=== PATIENT | female | born 1955 | race Caucasian/White ===

== ENCOUNTER 2019-09-12 08:24 | Day surgery (SDC) | payer OTHER ==
[2019-09-09 11:33] LABS: Urine Appearance CLEAR; Urine Bilirubin NEGATIVE (NEG); Urine Blood TRACE (NEG); Urine Color YELLOW; Urine Glucose NEGATIVE (NEG); Urine Protein NEGATIVE (NEG); Urine pH 7.5 (5.0-7.0)
[2019-09-09 11:39] LABS: Protime INR 0.93
[2019-09-09 11:40] LABS: Absolute Lymphocytes (CBC) 1.6 K/uL (0.7-4.9); Basophils % 0.8 % (0-1.3); Hematocrit 41.5 % (36.0-45.0); Lymphocytes % 27.3 % (15.3-44.8); MPV 7.7 fL (7.6-11.3); RBC Red Blood Cell Count 4.73 M/uL (3.86-4.86)
[2019-09-09 11:45] LABS: Urine Microscopic Reflex ORDER UMIC
[2019-09-09 11:57] LABS: Urine Bacteria NONE SEEN /HPF (<20); Urine Culture Reflex Order NOT NEEDED; Urine RBC <5 /HPF (NONE SEEN)
[2019-09-09 12:03] LABS: Potassium 3.8 mmol/L (3.5-5.1)
[2019-09-12] MEDS ORDERED: LIDOCAINE 2% MPF 5 ML VIAL ONE (08:50)
[2019-09-12] MEDS ORDERED: FENTANYL CITR 250 MCG/5 ML ONE (08:50)
[2019-09-12] MEDS ORDERED: dexAMETHasone 10 MG/ML VIAL ONE (08:50)
[2019-09-12] MEDS ORDERED: ONDANSETRON 4 MG/2 ML VIAL ONE (08:50)
[2019-09-12] MEDS ORDERED: propofoL 200 MG/20 ML VIAL IV ONE (08:50)
[2019-09-12] MEDS ORDERED: MIDAZOLAM HCL 2 MG/2 ML INJ ONE (08:50)
[2019-09-12] MEDS ORDERED: ROCURONIUM 50 MG/5 ML VIAL IV ONE (08:50)
[2019-09-12] MEDS ORDERED: Ringers Lactate 1,000 ML IV ONE ×2 (08:58→09:44)
[2019-09-12] MEDS ORDERED: SCOPOLAMINE HYDROBROMIDE PATCH TD ONE (08:58)
[2019-09-12] MEDS: CEFAZOLIN/SWI 2gm 2 GM/20 ML SYR ONE ×3 (09:24→10:20)
[2019-09-12] MEDS ORDERED: BUPIVACAINE 0.25% PF 30 ML VIAL ONE (09:44)
[2019-09-12] MEDS ORDERED: CEFAZOLIN/SWI 1gm 0 GM/0 ML SYR ONE (09:49)
[2019-09-12] MEDS ORDERED: NA CHLORIDE 0.9% 100 ML IV ONE (09:49)
[2019-09-12] MEDS ORDERED: VASOPRESSIN 20 UNIT/ML VIAL ONE (09:49)
--- OUTSIDE RECORDS SUMMARY | 2019-09-12 10:00 | XMS REPORT | Continuity of Care Document ---
:1955 Author Organization [employer] [facility] Care Team Providers Name Role Phone [employer] Unavailable Un available Problems Problem Status Onset Classification Date Comments Sourc e Date Reported Primary Active 04/05/19 04/22/2019 [facility] hypothyroidism 17 Healt h Multiple thyroid Active 04/05/19 04/22/2019 [facility] nodules 17 Health Personal history Active 04/06/19 11/07/2018 [facility] of other diseases 11 He alth of digestive system Personal history Active 04/06/19 04/22/2019 [facility] of other diseases 11 He alth of digestive system Osteoporosis, Active 12/17/19 04/22/2019 [facility] senile 09 Health GERD Active 12/17/19 04/22/2019 [facility] (gastroesophageal 09 He alth reflux disease) Hyperlipidemia Active Problem 07/26/2019 [facility] her (disorder) Neuro Hypothyroidism Active Problem 07/26/2019 [facility] (disorder) Neuro Paresthesia Active Problem 07/26/2019 [facility] (finding) Neuro 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) Cataract Active 04/22/2019 [facility] Health Plantar fasciitis, Active 04/18/2019 [facility] bilateral Health Bilateral foot Active 04/18/2019 [facility] pain Health Cataract, nuclear Active 11/07/2018 [facility] sclerotic senile, He alth left Pre-op testing Active 11/06/2018 [facility] Health Medications Medication Details Route Status Patient Ordering Order Source Instructions Provider Date gabapentin 300 MG 300 mg = 1 Active 07/04/ Mis isabel Oral Capsule cap, PO, 2019 Neuro BID, # 180 cap, 3 Refill(s), Pharmacy: [facility] #[id number] gabapentin 300 MG 300 mg = 1 Active 06/12/ Mis isabel Oral Capsule cap, PO, 2019 Neuro BID, # 60 cap, 3 Refill(s), Pharmacy: [facility] #[id number] levothyroxine 88 88 Active 06/12/ [facility]ischer mcg (0.088 mg) microgram 2019 Neuro oral tablet = 1 tab, PO, Daily, 0 Refill(s) pravastatin 40 mg 40 mg = 1 Active c her oral tablet tab, PO, 2019 Neuro Daily, 0 Refill(s) FLUoxetine 40 mg 40 mg = 1 Active ch er oral capsule cap, PO, 2019 Neuro Daily, 0 Refill(s) busPIRone 7.5 mg 7.5 mg = 1 Active c her oral tablet tab, PO, 2019 Neuro BID, 0 Refill(s) zolpidem 10 mg 10 mg = 1 Active 06/12/ [facility] oral tablet tab, PO, 2019 Neuro Bedtime, 0 Refill(s) Lorazepam 1 MG 1 mg = 1 Active 06/12/ cher Oral Tablet tab, PO, 2019 Neuro TID, 0 Refill(s) gabapentin 100 MG 100 mg = 1 Inactive paula Oral Capsule cap, PO, 2019 Neuro BID, 0 Refill(s) denosumab Subcutaneous Inactive [facility] (PROLIA) 2019 Health injection Syrg 60 mg levothyroxine Take 1 Oral Active 01/23/ [facility] (SYNTHROID) 88 tablet by 2019 Health mcg tablet mouth every morning. modafinil 100 mg Take 100 Oral No Longer [facility] tablet mg by Active 2019 Health mouth as needed. GINKGO BILOBA Take 1 Oral No Longer 11/07/ [facility] ORAL tablet by Active 2019 Health mouth daily. diphenhydramine Take 1 Oral No Longer 11/07/ [facility] HCl (SLEEP-AID tablet by Active 2019 Health ORAL) mouth at bedtime as needed. vilazodone Take 1 Oral No Longer 11/06/ [facility] (VIIBRYD) 10 mg tablet by Active 2019 Health Tab mouth daily. levothyroxine Take 1 Oral Active 11/05/ [facility] (SYNTHROID) 88 tablet by 2019 Health mcg tablet mouth every morning. VIIBRYD 40 mg Take 40 mg Oral Active 10/28/ [facility] tablet by mouth 2019 Health daily. levothyroxine Take 1 Oral No Longer 04/03/ [facility] (SYNTHROID) 88 tablet by Active 2019 Health mcg tablet mouth every morning. pravastatin Take 40 mg Oral Active [facility] (PRAVACHOL) 40 mg by mouth Healt h tablet at bedtime. cholecalciferol, Take 1 Oral Active [facility] vitamin D3, tablet by [employer] 50,000 unit mouth tablet every 14 (fourteen) days. ezetimibe 10 mg Take 10 mg Oral Active [facility] tablet by mouth Health daily. vilazodone Take 1 Oral Active [facility] (VIIBRYD) 10 mg tablet by Health Tab mouth daily. modafinil 100 mg Take 100 Oral Active [facility] tablet mg by Health mouth as needed. GINKGO BILOBA Take 1 Oral Active [facility] ORAL tablet by Health mouth daily. diphenhydramine Take 1 Oral Active [facility] HCl (SLEEP-AID tablet by Health ORAL) mouth at bedtime as needed. Allergies, Adverse Reactions, Alerts No Known Medication Allergies Immunizations No Data Provided for This Section Results Order Name Results Value Reference Date Interpretation Comments Emelina rce Range COMP. NA 142 135 - 145 11/06 [facility] METABOLIC Health PANEL (35299) COMP. K 4.6 3.5 - 5 11/06 [facility] METABOLIC Health PANEL (97025) COMP. CL 101 98 - 108 11/06 [facility] Health PANEL (91800) COMP. CO2 TOTAL 29 23 - 31 11/06 [facility] Health PANEL (30959) COMP. AGAP 12 2 - 16 11/06 [facility] Health PANEL (75785) COMP. BUN 16 7 - 23 11/06 [facility] Health PANEL (60674) COMP. GLUCOSE 105 70 - 110 11/06 [facility] METABOLIC Health PANEL (92231) COMP. CREATININE 0.89 0.5 - 1.04 11/06 [facility] METABOLIC Health PANEL (39303) COMP. TOTAL BILI 0.5 0.1 - 1.1 11/06 [facility] Health PANEL (95889) COMP. CALCIUM 10.2 8.6 - 10.6 11/06 [facility] Health PANEL (58964) COMP. T PROTEIN 7.9 6.3 - 8.2 11/06 [facility] METABOLIC Health PANEL (80095) COMP. ALBUMIN 5.0 3.5 - 5 11/06 [facility] Health PANEL (87409) COMP. ALK PHOS 48 34 - 122 11/06 [facility] METABOLIC Health PANEL (64995) COMP. ALT(SGPT) 38 9 - 51 11/06 [facility] METABOLIC Health PANEL (33641) COMP. AST(SGOT) 27 13 - 40 11/06 [facility] METABOLIC /2018 Health PANEL (19431) COMP. eGFR 64.1 mL/min/1.7 11/06 [facility] METABOLIC Calculation 3m Health PANEL (57974) (Non-) COMP. eGFR 77.6 mL/min/1.7 11/06 [facility] METABOLIC Calculation Health PANEL (49627) () COMP. <p>Association Association 11/06 [facility] METABOLIC of Glomerular of Health PANEL (49573) Filtration Glomerular Rate (GFR) and Filtration Staging of Rate (GFR) Kidney and Staging Disease*</p of Kidney ><p>+--------- Disease*+--- + --------+--- --------+----- ------+----- ------+</p><p> | GFR --------+| (mL/min/1.73 GFR m2)| With (mL/min/1.73 Kidney m2)| With Damage|Without Kidney Kidney Damage|Witho Damage< md Kidney /p><p>+------- Damage+----- --+ ------+----- +--- ----+------- --------+</p>< p>|>90|Stage ------+|>90| one| Stage one| Normal</p><p&a Normal+----- mp;gt;+------- ------+----- --+ +--- ----+------- --------+</p>& ------+|60-8 lt;p>|60-89|St 9|Stage two| age two| Decreased Decreased GFR GFR </p><p>+------ + ---+ + +-- +- ---------+</p> <p>|30-59|Stag +|30-59|Stag e three| Stage e three| three Stage three </p><p>+------ + ---+ + +-- +- ---------+</p> <p>|15-29|Stag +|15-29|Stag e four | Stage e four | four</p&gt Stage ;<p>+--------- four+------- + ----+------- --------+----- --+--------- ------+</p> <p>|<15 (or ----+|+----- dialysis)|Stag e five | Stage ------+----- five</p><p> + ----+------- +--- ------+*Each ----+--------- stage assumes the --+</p><p>* associated Each stage GFR level assumes the has been in associated GFR effect for level has been at least in effect for three at least three months.Stage months.Stages s 1 to 5, 1 to 5, with with or or without without kidney kidney disease, disease, indicate indicate chronic kidney chronic disease.</p&am kidney p;gt;<p>Notes: disease.Note Determination s: of stages one Determinatio and two (with n of stages eGFR one and two >59mL/min/1.73 (with eGFR m2) requires >59mL/min/1. estimation of 73 m2) kidney damage requires for at least estimation three months of kidney as defined by damage for structural or at least functional three months abnormalities as defined of the kidney, by manifested by structural either:</p><p> or Pathological functional abnormalities abnormalitie or Markers of s of the kidney damage kidney, (including manifested abnormalities by in the either:Patho composition of logical the blood or abnormalitie urine or s or Markers abnormalities of kidney in imaging damage tests). </p> (including abnormalitie s in the composition of the blood or urine or abnormalitie s in imaging tests). CBC WITH <td 7.88 4.30 - 11/06 [facility] DIFFERENTIAL ID="[id number] [facility] 24025Mjyt4Huim ">WBC</td><td& amp;gt;7.88</t d><td>4.30 - 11.10 10*3/L</td>&l t;td>[facility]</td ><td ID="[id number] 08872Pidj2Izph ature"/> CBC WITH <td 4.32 3.93 - 11/06 [facility] DIFFERENTIAL ID="[id number] 5 [facility] 62405Imhx9Xvjv ">RBC</td><td& amp;gt;4.32</t d><td>3.93 - 5.25 10*6/L</td><t d>[facility]</td ><td ID="[id number] 82459Drym4Yqvm ature"/> CBC WITH <td 12.9 11.6 - 15 11/06 [facility] DIFFERENTIAL ID="[id number] /2019 [facility] 51136Htni7Rwtm ">HGB</td><td& amp;gt;12.9</t d><td>11.6 - 15.0 g/dL</td><td>[facility]</td ><td ID="[id number] 42481Vfwe8Lhaw ature"/> CBC WITH <td 38.1 35.7 - 11/06 [facility] DIFFERENTIAL ID="Itnvjd7411 45.2 [facility] 56774Amgq9Rcts ">HCT</td><td& amp;gt;38.1</t d><td>35.7 - 45.2 %</td><td>[facility]</td ><td ID="[id number] 00160Xikq0Wbaw ature"/> CBC WITH <td 88.2 80.6 - 11/06 [facility] DIFFERENTIAL ID="Dbstxw2503 95.5 [facility] 49476Kmde7Nizu ">MCV</td><td& amp;gt;88.2</t d><td>80.6 - 95.5 fL</td><td>[facility]</td ><td ID="[id number] 03556Cadc5Wdhl ature"/> CBC WITH <td 29.9 25.9 - 11/06 [facility] DIFFERENTIAL ID="Pfxlfd6410 32.8 [facility] 75485Fiyv0Wxdj ">MCH</td><td& amp;gt;29.9</t d><td>25.9 - 32.8 pg</td><td>[facility]</td ><td ID="Tdsrqj4956 62627Yfxh6Tlpj ature"/> CBC WITH <td 33.9 31.6 - 11/06 [facility] DIFFERENTIAL ID="Oiuecm8316 35.1 [facility] 92196Lewk7Ougf ">MCHC</td><td >33.9</ td><td>31.6 - 35.1 g/dL</td><td>[facility]</td ><td ID="[id number] 93762Yeel4Gapo ature"/> CBC WITH <td 41.9 39 - 49.9 11/06 [facility] DIFFERENTIAL ID="[id number] /2019 [facility] 05741Fsta8Bsro ">RDW-SD</td>< td>41.9</td><t d>39.0 - 49.9 fL</td><td>[facility]</td ><td ID="[id number] 62795Pzuu1Dpmd ature"/> CBC WITH <td 12.9 12 - 15.5 11/06 [facility] DIFFERENTIAL ID="[id number] /2019 [facility] 31266Smdk5Pcih ">RDW-CV</td>< td>12.9</td><t d>12.0 - 15.5 %</td><td>[facility]</td ><td ID="[id number] 17628Rqgq4Cvhc ature"/> CBC WITH <td 219 166 - 11/06 [facility] DIFFERENTIAL ID="[id number] [facility] 72530Exwq64Btb e">PLT</td><td >219</t d><td>166 - 358 10*3/L</td><t d>[facility]</td ><td ID="[id number] 53398Fwlw56Wpc nature"/> CBC WITH <td 9.2 9.5 - 12.9 11/06 [facility] DIFFERENTIAL ID="[id number] /2019 [facility] 47243Ukzj91Col e">MPV</td><td ><span style="flagDat a">9.2</span>< span style="flagDat a"> (L)</span></td ><td>9.5 - 12.9 fL</td><td>[facility]</td ><td ID="Dxrxop7433 47267Exqp38Bsc nature"/> CBC WITH NRBC/100 WBC 0.0 0.0 - 11/06 [facility] DIFFERENTIAL 10.0100 Health CBC WITH NRBC x10^3 <0.01 10*3/L 11/06 [facility] DIFFERENTIAL Health CBC WITH <td 64.2 11/06 [facility] DIFFERENTIAL ID="Mvwugo1225 /2019 [facility] 64466Zzwq72Mon e">GRAN MAT (NEUT) %</td><td>6 4.2</td><td>%< /td><td>[facility]</td ><td ID="Doaezu4046 44484Jpbe97Uld nature"/> CBC WITH IMM GRAN % 0.40 11/06 [facility] DIFFERENTIAL /2018 Health CBC WITH <td 25.1 11/06 [facility] DIFFERENTIAL ID="Jarfce4193 /2019 [facility] 89003Drar66Dvz e">LYMPH %</td><td>25.1 </td><td>%</td ><td>[facility]</td ><td ID="Jthkrw3701 00286Dvkb29Wxu nature&quo t;/> CBC WITH <td 7.6 11/06 [facility] DIFFERENTIAL ID="Ryzwcl9013 /2019 [facility] 63204Avdk10Qli e">MONO %</td><td>7.6< /td><td>%</td> <td>[facility]</td ><td ID="Ttaljz5083 75903Qfyo67Orv nature"/> CBC WITH <td 2.2 11/06 [facility] DIFFERENTIAL ID="Ytrlpw1008 /2019 [facility] 64301Oaev71Uor e">EOS %</td><td>2.2< /td><td>%</td> <td>[facility]</td ><td ID="Gynvrk7883 60281Denj50Wid nature"/> CBC WITH <td 0.5 11/06 [facility] DIFFERENTIAL ID="[id number] /2019 [facility] 24432Ghmp96Max e">BASO %</td><td>0.5< /td><td>%</td> <td>[facility]</td ><td ID="[id number] 76971Pczv26Rmr nature"/> CBC WITH GRAN MAT 5.06 1.88 - 11/06 [facility] DIFFERENTIAL x10^3(ANC) 7.09 Health CBC WITH IMM GRAN x10^3 0.03 0 - 0.06 11/06 [facility] DIFFERENTIAL /2018 Health CBC WITH <td 1.98 1.32 - 11/06 [facility] DIFFERENTIAL ID="Pomchn8511 3. [facility] 97849Mfkl62Pnn e">LYMPH x10^3</td>&amp ;lt;td>1.98</t d><td>1.32 - 3.29 10*3/uL</td><t d>[facility]</td ><td ID="[id number] 83196Rksl41Eew nature"/> CBC WITH <td 0.60 0.33 - 11/06 [facility] DIFFERENTIAL ID="Vbzwpj5573 0.92 [facility] 21272Jxud88Vdm e">MONO x10^3</td>< td>0.60</td><t d>0.33 - 0.92 10*3/uL</td><t d>[facility]</td ><td ID="[id number] 57906Xctv53Axd nature"/> CBC WITH <td 0.17 0.03 - 11/06 [facility] DIFFERENTIAL ID="Odyvke2064 0.39 [facility] 47205Dqlm17Yks e">EOS x10^3</td>< td>0.17</td><t d>0.03 - 0.39 10*3/uL</td><t d>[facility]</td ><td ID="Yyhjar0211 99857Yfzz50Bkf nature"/> CBC WITH <td 0.04 0.01 - 11/06 [facility] DIFFERENTIAL ID="Pqrtuj4724 0.07 [facility] 24564Virp70Rxk e">BASO x10^3</td>< td>0.04</td><t d>0.01 - 0.07 10*3/uL</td><t d>[facility]</td ><td ID="[id number] 61055Lhdb63Gpt nature"/> CBC WITH Lab Abnormal 11/06 [facility] DIFFERENTIAL Interpretation /2018 [facility] Pathology Reports No Data Provided for This Section Diagnostic Reports No Data Provided for This Section Consultation Notes No Data Provided for This Section Discharge Summaries No Data Provided for This Section History and Physicals No Data Provided for This Section Vital Signs Vital Sign Value Date Comments Source Systolic (mm Hg) 116 07/23/2019 [facility] Rakesh ro Diastolic (mm Hg) 66 07/23/2019 [facility] Ne uro Heart Rate 70 07/23/2019 [facility] Neuro Respitory Rate 16 07/23/2019 [facility] Neuro Temperature Oral (F) 97.9 F 07/23/2019 [facility] Neuro Height 160.02 cm 07/23/2019 [facility] Neuro Weight 59.091 07/23/2019 [facility] Neuro BMI Calculated 23.08 07/23/2019 [facility] Neuro Systolic (mm Hg) 116 06/13/2019 [facility] Rakesh ro Diastolic (mm Hg) 65 06/13/2019 [facility] Ne uro Heart Rate 78 06/13/2019 [facility] Neuro Respitory Rate 16 06/13/2019 [facility] Neuro Height 162.56 cm 06/13/2019 [facility] Neuro Weight 58.182 06/13/2019 [facility] Neuro BMI Calculated 22.02 06/13/2019 [facility] Neuro Systolic (mm Hg) 127 04/12/2019 [facility] Health Diastolic (mm Hg) 78 04/12/2019 [facility] Healt h Heart Rate 77 04/12/2019 [facility] Health Temperature Oral (F) 36.56 Navya 04/12/2019 [facility] He alth Height 160 cm 04/12/2019 [facility] Health Weight 57.38 04/12/2019 [facility] Health Systolic (mm Hg) 95 11/07/2018 [facility] Health Diastolic (mm Hg) 71 11/07/2018 [facility] Healt h Heart Rate 75 11/07/2018 [facility] Health Temperature Oral (F) 36.67 Navya 11/07/2018 [facility] He alth Respitory Rate 15 11/07/2018 [facility] Health Height 160 cm 11/06/2018 [facility] Health Weight 56.7 11/06/2018 [facility] Health Encounters Location Location Encounter Encounter Reason Attending ADM DC Stat us Source Details Type Number For Provider Date Date Visit [facility] Health Refill [id number] [place] 10/30 [facility] Family Health Medicine, [facility] Orders Only [id number] No Doctor 11/06 [facility] Unassigned Health [facility] Health [employer] [id number] Kee 11/06 11/06 [facility] Phlebotomy Visit Aj TORRES /2018 He alth [facility] [id number] Kee 11/07 11/07 [facility] [place] Encounter Aj TORRES /2018 H ealth [facility] Health Ancillary [id number] Taj 04/02 04/02 [id number] No Doctor 04/04 [facility] Unass Health [facility] Health Ancillary [id number] Taj 04/04 04/04 [id number] Liudmila Starkey 04/09 [facility] MD [facility] [id number] Taj 04/09 04/09 [facility] [id number] Taj 04/11 04/11 [facility] Physical Visit Gage TORRES /2019 [facility] Health Nurse Visit [id number] Liudmila Starkey 04/12 04/12 [facility] Marino TORRES /2019 Health Diabetes-LC Multispecia y [facility] Health Ancillary [id number] Taj 04/16 04/16 [facility] Physical Visit Gage TORRES /2019 [facility] Health Ancillary [id number] Taj 04/18 04/18 [facility] Physical Visit Gage TORRES /2019 [facility] Outpatient [id number] Isael Tamayo 06/12 Act [facility] [id number] Isael Tamayo 06/12 06/13 [facility] Outpatient [id number] Isael Tamayo 07/18 Act jos[facility] Ambulatory [id number] Isael Tamayo 07/18 07/18 [facility] Pre-[facility] Neuro [facility] Outpatient [id number] Isael Tamayo 07/22 Act josé mig[facility] Outpatient [id number] Isael Tamayo 07/22 07/23 [facility] Outpatient [id number] Isael Tamayo 11/25 Act josé [facility] Procedures Procedure Code Date Perfomer Comments Source HOLTER MONITOR [id number] 04/04/2019 Doctor Unassigned [facility] Health RESULT COMP. METABOLIC 81938 11/06/2018 [facility] th PANEL (21188) CBC WITH DIFF 00144 11/06/2018 [facility] CBC WITH [id number] 11/06/2018 [facility] [place] [address] 11/06/2018 Doctor Unassigned [facility] Health BENEFITS Assessment and Plan No Data Provided for This Section Plan of Care Plan of Care Date Source Breast Cancer Screening (MAMMOGRAM) 01/12/2020 [facility] Upcoming EncountersDateTypeSpecialtyCare TeamDescription 05/2019 [facility] 07/24/2019 Office Visit Endocrinology Diabetes and Metabolism Liudmila Starkey MD[address] [place], [place] [phone] (Fax) Health MaintenanceDue DateLast DoneComments HEPATITIS C (HCV) SCREEN 1955 DTaP,Tdap,and Td Vaccines (1 - Tdap) 08/07/1966 PAP SMEAR 08/07/1976 COLONOSCOPY 08/07/2005 Zoster Recombinant Vaccine (SHINGRIX) (1 of 2) 08/07/2005 INFLUENZA VACCINE (#1) 2018 Breast Cancer Screening (MAMMOGRAM) 01/12/2020 01/11/2019, 09/05/2014 PNEUMOCOCCAL 0-64 YEARS COMBINED SERIES Aged Out No longer eligible based on patient's age to complete this t opic documented as of this encounter Upcoming EncountersDateTypeSpecialtyCare TeamDescription [facility] 07/24/2019 Office Visit Endocrinology Diabetes and Metabolism Liudmila Starkey MD[address] [place], [place] [phone] (Fax) Health MaintenanceDue DateLast DoneComments HEPATITIS C (HCV) SCREEN 1955 DTaP,Tdap,and Td Vaccines (1 - Tdap) 08/07/1966 PAP SMEAR 08/07/1976 COLONOSCOPY 08/07/2005 Zoster Recombinant Vaccine (SHINGRIX) (1 of 2) 08/07/2005 INFLUENZA VACCINE (#1) 2018 Breast Cancer Screening (MAMMOGRAM) 01/12/2020 01/11/2019, 09/05/2014 PNEUMOCOCCAL 0-64 YEARS COMBINED SERIES Aged Out No longer eligible based on patient's age to complete this t opic documented as of this encounter Upcoming EncountersDateTypeSpecialtyCare TeamDescription [facility] 04/18/2019 Ancillary Visit Physical Therapy Teto Bowens, [address] [phone] 07/24/2019 Office Visit Endocrinology Diabetes and Metabolism Liudmila Starkey MD[address] [place], [place] [phone] (Fax) [facility] DateLast DoneComments HEPATITIS C (HCV) SCREEN 1955 DTaP,Tdap,and Td Vaccines (1 - Tdap) 08/07/1966 PAP SMEAR 08/07/1976 COLONOSCOPY 08/07/2005 Zoster Recombinant Vaccine (SHINGRIX) (1 of 2) 08/07/2005 INFLUENZA VACCINE (#1) 2018 Breast Cancer Screening (MAMMOGRAM) 01/12/2020 01/11/2019, 09/05/2014 PNEUMOCOCCAL 0-64 YEARS COMBINED SERIES Aged Out No longer eligible based on patient's age to complete this t opic documented as of this encounter Upcoming EncountersDateTypeSpecialtyCare TeamDescription [facility] 04/18/2019 Ancillary Visit Physical Therapy Teto Bowens, [address] [address] 07/24/2019 Office Visit Endocrinology Diabetes and Metabolism Liudmila Starkey MD[address] [place], [place] [phone] (Fax) [facility] DateLast DoneComments HEPATITIS C (HCV) SCREEN 1955 DTaP,Tdap,and Td Vaccines (1 - Tdap) 08/07/1966 PAP SMEAR 08/07/1976 COLONOSCOPY 08/07/2005 Zoster Recombinant Vaccine (SHINGRIX) (1 of 2) 08/07/2005 INFLUENZA VACCINE (#1) 2018 Breast Cancer Screening (MAMMOGRAM) 01/12/2020 01/11/2019, 09/05/2014 PNEUMOCOCCAL 0-64 YEARS COMBINED SERIES Aged Out No longer eligible based on patient's age to complete this t opic documented as of this encounter Upcoming EncountersDateTypeSpecialtyCare TeamDescription [facility] 04/16/2019 Ancillary Visit Physical Therapy Teto Bowens, [address] [address] 04/18/2019 Ancillary Visit Physical Therapy Teto Bowens, [address] [address] 07/24/2019 Office Visit Endocrinology Diabetes and Metabolism Liudmila Starkey MD[address] [place], [place] [phone] (Fax) Health MaintenanceDu DateLast DoneComments HEPATITIS C (HCV) SCREEN 1955 DTaP,Tdap,and Td Vaccines (1 - Tdap) 08/07/1966 PAP SMEAR 08/07/1976 COLONOSCOPY 08/07/2005 Zoster Recombinant Vaccine (SHINGRIX) (1 of 2) 08/07/2005 INFLUENZA VACCINE (#1) 2018 Breast Cancer Screening (MAMMOGRAM) 01/12/2020 01/11/2019, 09/05/2014 PNEUMOCOCCAL 0-64 YEARS COMBINED SERIES Aged Out No longer eligible based on patient's age to [facility] documented [facility] of this encounter Upcoming EncountersDateTypeSpecialtyCare TeamDescription [facility] 04/12/2019 Nurse Visit Endocrinology Diabetes and Metabolism Liudmila Starkey MD[address] [place], [place] [phone] (Fax) Nurse, [facility] Diabetes 04/16/2019 Ancillary Visit Physical Therapy Bree Bowens, [address] [phone] 04/18/2019 Ancillary Visit Physical Therapy Bree Bowens, [address] [address] 07/24/2019 Office Visit Endocrinology Diabetes and Metabolism Liudmila Starkey MD[address] [place], [place] [phone] (Fax) [facility] DateLast DoneComments HEPATITIS C (HCV) SCREEN 1955 DTaP,Tdap,and Td Vaccines (1 - Tdap) 08/07/1966 PAP SMEAR 08/07/1976 COLONOSCOPY 08/07/2005 Zoster Recombinant Vaccine (SHINGRIX) (1 of 2) 08/07/2005 INFLUENZA VACCINE (#1) 2018 Breast Cancer Screening (MAMMOGRAM) 01/12/2020 01/11/2019, 09/05/2014 PNEUMOCOCCAL 0-64 YEARS COMBINED SERIES Aged Out No longer eligible based on patient's age to complete this t opic documented as of this encounter Upcoming EncountersDateTypeSpecialtyCare TeamDescription [facility] 04/11/2019 Ancillary Visit Physical Therapy Bree Bowens, [address] [address] 04/16/2019 Ancillary Visit Physical Therapy Bree Bowens, [address] [address] 04/18/2019 Ancillary Visit Physical Therapy Bree Bowens, [address] [address] 07/24/2019 Office Visit Endocrinology Diabetes and Metabolism Liudmila Starkey MD[address] [place], [place] [phone] (Fax) Health MaintenanceDue DateLast DoneComments HEPATITIS C (HCV) SCREEN 1955 DTaP,Tdap,and Td Vaccines (1 - Tdap) 08/07/1966 PAP SMEAR 08/07/1976 COLONOSCOPY 08/07/2005 Zoster Recombinant Vaccine (SHINGRIX) (1 of 2) 08/07/2005 INFLUENZA VACCINE (#1) 2018 Breast Cancer Screening (MAMMOGRAM) 01/12/2020 01/11/2019, 09/05/2014 PNEUMOCOCCAL 0-64 YEARS COMBINED SERIES Aged Out No longer eligible based on patient's age to complete this t opic documented as of this encounter Upcoming EncountersDateTypeSpecialtyCare TeamDescription [facility] 04/09/2019 Ancillary Visit Physical Therapy Bree Bowens, [address] [address] 04/11/2019 Ancillary Visit Physical Therapy Bree Bowens, [address] [address] 04/16/2019 Ancillary Visit Physical Therapy Bree Bowens, [address] [address] 04/18/2019 Ancillary Visit Physical Therapy Bree Bowens, [address] [address] 07/24/2019 Office Visit Endocrinology Diabetes and Metabolism Liudmila Starkey MD[address] [place], [place] [phone] (Fax) Health MaintenanceDu DateLast DoneComments HEPATITIS C (HCV) SCREEN 1955 DTaP,Tdap,and Td Vaccines (1 - Tdap) 08/07/1966 PAP SMEAR 08/07/1976 COLONOSCOPY 08/07/2005 Zoster Recombinant Vaccine (SHINGRIX) (1 of 2) 08/07/2005 INFLUENZA VACCINE (#1) 2018 Breast Cancer Screening (MAMMOGRAM) 01/12/2020 01/11/2019, 09/05/2014 PNEUMOCOCCAL 0-64 YEARS COMBINED SERIES Aged Out No longer eligible based on patient's age to complete this t opic documented as of this encounter Upcoming EncountersDateTypeSpecialtyCare TeamDescription [facility] 04/04/2019 Ancillary Visit Physical Therapy Cyndi Jean Baptiste, [address] [address] 04/05/2019 Nurse Visit Endocrinology Diabetes and Metabolism Nurse, [facility] 04/09/2019 Ancillary Visit Physical Therapy Bree Bowens, [address] [address] 04/11/2019 Ancillary Visit Physical Therapy Bree Bowens, [address] [address] 04/16/2019 Ancillary Visit Physical Therapy Bree Bowens [address] [address] 04/18/2019 Ancillary Visit Physical Therapy Bree Bowens, [address] [address] 07/24/2019 Office Visit Endocrinology Diabetes and Metabolism Liudmila Starkey MD[address] [place], [place] [phone] (Fax) Health MaintenanceDu DateLast DoneComments HEPATITIS C (HCV) SCREEN 1955 DTaP,Tdap,and Td Vaccines (1 - Tdap) 08/07/1966 PAP SMEAR 08/07/1976 COLONOSCOPY 08/07/2005 Zoster Recombinant Vaccine (SHINGRIX) (1 of 2) 08/07/2005 INFLUENZA VACCINE (#1) 2018 Breast Cancer Screening (MAMMOGRAM) 01/12/2020 01/11/2019, 09/05/2014 PNEUMOCOCCAL 0-64 YEARS COMBINED SERIES Aged Out No longer eligible based on patient's age to complete this t opic documented as of this encounter INFLUENZA VACCINE (#1) 2018 [facility] Upcoming EncountersDateTypeSpecialtyCare TeamDescription [facility] 01/23/2019 Office Visit Endocrinology Diabetes and Metabolism Liudmila Starkey MD[address] [place], [place] [phone] (Fax) Health MaintenanceDue DateLast DoneComments HEPATITIS C (HCV) SCREEN 1955 DTaP,Tdap,and Td Vaccines (1 - Tdap) 08/07/1974 PAP SMEAR 08/07/1976 COLONOSCOPY 08/07/2005 Zoster Recombinant Vaccine (SHINGRIX) (1 of 2) 08/07/2005 MAMMOGRAM 09/06/2015 09/05/2014 INFLUENZA VACCINE (#1) 2018 PNEUMOCOCCAL 0-64 YEARS COMBINED SERIES Aged Out No longer eligible based on patient's age to complete this t opic documented as of this encounter Upcoming EncountersDateTypeSpecialtyCare TeamDescription [facility] 11/07/2018 Hospital Encounter Surgery Kee Rocha MD[address] [place] [phone] (Fax) 11/07/2018 Anesthesia Event Surgery Jimmy Currie CRNA[address] [place], [place] [phone] (Fax) 11/07/2018 Surgery Surgery Kee Rocha MD[address] [place] [phone] (Fax) PHACOEMULSIFICATION OF CATARACT WITH INTRAOCULAR LENS IMPLAN T 01/23/2019 Office Visit Endocrinology Diabetes and Metabolism Liudmila Starkey MD[address] [place], [place] [phone] (Fax) Health MaintenanceDu DateLast DoneComments HEPATITIS C (HCV) SCREEN 1955 DTaP,Tdap,and Td Vaccines (1 - Tdap) 08/07/1974 PAP SMEAR 08/07/1976 COLONOSCOPY 08/07/2005 Zoster Recombinant Vaccine (SHINGRIX) (1 of 2) 08/07/2005 MAMMOGRAM 09/06/2015 09/05/2014 INFLUENZA VACCINE (#1) 2018 PNEUMOCOCCAL 0-64 YEARS COMBINED SERIES Aged Out No longer eligible based on patient's age to complete this t opic documented as of this encounter Upcoming EncountersDateTypeSpecialtyCare TeamDescription [facility] 11/07/2018 Hospital Encounter Surgery Kee Rocha MD[address] [place] [phone] (Fax) 11/07/2018 Anesthesia Event Surgery Jimmy Currie CRNA[address] [place], [place] [phone] (Fax) 11/07/2018 Surgery Surgery Kee Rocha MD[address] [place] [phone] (Fax) PHACOEMULSIFICATION OF CATARACT WITH INTRAOCULAR LENS IMPLAN T 01/23/2019 Office Visit Endocrinology Diabetes and Metabolism Liudmila Starkey MD[address] [place], [place] [phone] (Fax) [facility] MaintenanceDu DateLast DoneComments HEPATITIS C (HCV) SCREEN 1955 DTaP,Tdap,and Td Vaccines (1 - Tdap) 08/07/1974 PAP SMEAR 08/07/1976 COLONOSCOPY 08/07/2005 Zoster Recombinant Vaccine (SHINGRIX) (1 of 2) 08/07/2005 MAMMOGRAM 09/06/2015 09/05/2014 INFLUENZA VACCINE (#1) 2018 PNEUMOCOCCAL 0-64 YEARS COMBINED SERIES Aged Out No longer eligible based on patient's age to complete this t opic documented as of this encounter Upcoming EncountersDateTypeSpecialtyCare TeamDescription [facility] 11/06/2018 [employer] Visit Clinical Medical Laboratory Kee Rocha MD[address] [facility] [phone] (Fax) 1, [facility] 11/07/2018 Hospital Encounter Surgery Kee Rocha MD[address] [facility] [place] [phone] (Fax) 11/07/2018 Surgery Surgery Kee Rocha MD[address] [facility] [place] [phone] (Fax) PHACOEMULSIFICATION OF CATARACT WITH INTRAOCULAR LENS IMPLAN T 01/23/2019 Office Visit Endocrinology Diabetes and Metabolism Liudmila Starkey MD[address] [place], [place] [phone] (Fax) Health MaintenanceDue DateLast DoneComments HEPATITIS C (HCV) SCREEN 1955 DTaP,Tdap,and Td Vaccines (1 - Tdap) 08/07/1974 PAP SMEAR 08/07/1976 COLONOSCOPY 08/07/2005 Zoster Recombinant Vaccine (SHINGRIX) (1 of 2) 08/07/2005 MAMMOGRAM 09/06/2015 09/05/2014 INFLUENZA VACCINE (#1) 2018 PNEUMOCOCCAL 0-64 YEARS COMBINED SERIES Aged Out No longer eligible based on patient's age to complete this t opic documented as of this encounter MAMMOGRAM 09/06/2015 [facility] Zoster Recombinant Vaccine (SHINGRIX) (1 of 2) 08/07/2005 [facility] Health COLONOSCOPY 08/07/2005 [facility] Health PAP SMEAR 08/07/1976 [facility] Health PAP SMEAR 08/07/1976 [facility] Health DTaP,Tdap,and Td Vaccines (1 - Tdap) 08/07/1974 [facility] Health DTaP,Tdap,and Td Vaccines (1 - Tdap) 08/07/1966 [facility] HEPATITIS C (HCV) SCREEN 1955 [facility] HEPATITIS C (HCV) SCREEN 1955 [facility] Social History Social History Date Source Social History TypeResponse 07/23/2019 [facility] Smoking Status Never smoker; Exposure to Tobacco Smoke Unable to obtain; Cigarette Smoking Last 365 Days No; Reg Smoking Cessation Counseling No entered on: 07/23/19 Tobacco UseTypesPacks/DayYears UsedDate 01/23/2019 [facility] Never Smoker Smokeless Tobacco: Never Used Alcohol UseDrinks/Weekoz/WeekComments Yes 2 -4 drinks a week Sex Assigned at BirthDate Recorded Not on file Job Start DateOccupationIndustry Not on file Not on file Not on file Travel HistoryTravel StartTravel End No recent travel history available. documented as of this encounter Family History No Data Provided for This Section Advance Directives No Data Provided for This Section Functional Status No Data Provided for This Section
--- OUTSIDE RECORDS SUMMARY | 2019-09-12 10:02 | XMS REPORT | Continuity of Care Document ---
:1955 Author Organization [facility] t Address [address] [place] [address] Care Team Providers Name Role Phone Lalito TORRES Attending Clinician Savage Tamayo Attending Clinician Kwan BOLANOS, F Attending Clinician Unavailable NurseMarino Diabetes Attending Clinician Unavailable Jennie Bowens PTA Attending Clinician Unavailable Doctor Unassigned, Name Attending Clinician Unavailable Juan David Russell PT Attending Clinician Unavailable Aj TORRES, A Attending Clinician 1, Lab Attending Clinician Unavailable Loreta TORRES, A Attending Clinician Aj TORRES, A Admitting Clinician Problems Condition Condition Condition Status Onset Resolution Last Treating Co mments Source Name Details Category Date Date Treatment Clinician Date Multiple Condition Active 2019-04-22 M emoria thyroid 04-05 14:37:23 l nodules Multiple 00:00: Angeline nn thyroid 00 nodules Active 04/05/2016 04/22/2019 [facility] Health Personal Condition Active 2018-11-07 M emoria history of - 20:21:48 l other Personal 00:00: Parker n diseases history of 00 of other digestive diseases system of digestive system Active 04/06/2010 11/07/2018 [facility] Health Personal Condition Active 2019-04-22 M emoria history of 04-06 14:37:23 l other Personal 00:00: Parker n diseases history of 00 of other digestive diseases system of digestive system Active 04/06/2010 04/22/2019 [facility] Health Osteoporos Condition Active 2019-04-22 Memoria is, senile 12-16 14:37:23 l 00:00: Yovanny Osteoporos 00 is, senile Active 12/16/2008 04/22/2019 [facility] Health GERD Condition Active 2019-04-22 Mem oria (gastroeso 12-16 14:37:23 l phageal GERD 00:00: Yovanny reflux (gastroeso 00 disease) phageal reflux disease) Active 12/16/2008 04/22/2019 [facility] Health Hyperlipid Problem Active 2019-07-26 M emoria emia 00:03:23 l (disorder) [place] hoyos Hyperlipid emia (disorder) Active Problem 07/26/2019 [facility] Hypothyroi Problem Active 2019-07-26 M emoria dism 00:03:23 l (disorder) [place] hoyos Hypothyroi dism (disorder) Active Problem 07/26/2019 [facility] Paresthesi Problem Active 2019-07-26 M emoria a 00:03:23 l (finding) [place] Paresthesi a (finding) Active Problem 07/26/2019 [facility] 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) Active Problem 07/26/2019 [facility] Cataract Condition Active 2019-04-22 M emoria 14:37:23 l Cataract Parker n Active 04/22/2019 [facility] Plantar Diagnosis Active 2019-04-18 Me moria fasciitis, 16:31:20 l bilateral Plantar Herm tj fasciitis, bilateral Active 0 [facility] Bilateral Diagnosis Active 2019-04-18 Memoria foot pain 16:31:20 l Yovanny Bilateral foot pain Active 0 [facility] Cataract, Diagnosis Active 2018-11-07 Memoria nuclear 20:21:48 l sclerotic [place] senile, Cataract, left nuclear sclerotic senile, left Active 9 [facility] Pre-op Diagnosis Active 2018-11-06 Mem oria testing 19:52:45 l Pre-op [place] testing Active 9 [facility] Allergies, Adverse Reactions, Alerts This patient has no known allergies or adverse reactions. Social History Smoking Status Start Date Stop Date Source Tobacco smoking status SDIS Vu rial Yovanny Medications Ordered Filled Start Stop Current Ordering Indication Dosage Frequency Signature Comments Components Source Medication Medication Date Date Medication? Clinician (SIG) Name Name gabapentin 2020-0 Yes 300 mg = 1 M emoria 300 MG Oral 4-17 cap, PO, l Capsule 15:42: BID, # 180 Herm tj 00 cap, 3 Refill(s), Pharmacy: [facility] #[id number] gabapentin 2020-0 Yes 300 mg = 1 M emoria 300 MG Oral 3-26 cap, PO, l Capsule 21:28: BID, # 60 Angeline nn 00 cap, 3 Refill(s), Pharmacy: [facility] #[id number] levothyroxi 2020-0 Yes 88 Memori a ne 88 mcg 3-26 microgram l (0.088 mg) 20:51: = 1 tab, Her guerra oral tablet 00 PO, Daily, 0 Refill(s) pravastatin 2020-0 Yes 40 mg = 1 M emoria 40 mg oral 3-26 tab, PO, l tablet 20:51: Daily, 0 [place] 00 Refill(s) FLUoxetine 2020-0 Yes 40 mg = 1 Me moria 40 mg oral 3-26 cap, PO, l capsule 20:51: Daily, 0 Parker n 00 Refill(s) busPIRone 2020-0 Yes 7.5 mg = 1 Me moria 7.5 mg oral 3-26 tab, PO, l tablet 20:51: BID, 0 [place] 00 Refill(s) zolpidem 10 2020-0 Yes 10 mg = 1 M emoria mg oral 3-26 tab, PO, l tablet 20:51: Bedtime, 0 Angeline nn 00 Refill(s) Lorazepam 1 2020-0 Yes 1 mg = 1 Me moria MG Oral 3-26 tab, PO, l Tablet 20:51: TID, 0 Yovanny 00 Refill(s) gabapentin 2020-0 No 100 mg = 1 M emoria 100 MG Oral 3-26 cap, PO, l Capsule 20:51: BID, 0 [place] 00 Refill(s) pravastatin 2020-0 Yes Take 40 mg Memoria (PRAVACHOL) 2-03 by mouth l 40 mg 14:37: at Yovanny tablet 23 bedtime. cholecalcif Yes Take 1 Vu jose bridget, 2-03 tablet by l vitamin D3, 14:37: mouth Angeline nn 50,000 unit 23 every 14 tablet (fourteen) days. ezetimibe Yes Take 10 mg Me moria 10 mg 2-03 by mouth l tablet 14:37: daily. Yovanny 23 denosumab No Memoria (PROLIA) 1-24 l injection 20:30: [place] Syrg 60 mg 00 levothyroxi 2018-03 Yes Take 1 Vu jose ne 1-06 tablet by l (SYNTHROID) 00:00: mouth Angeline nn 88 mcg 00 every tablet morning. modafinil No Take 100 Vu jose 100 mg 8-21 mg by l tablet 00:00: mouth as Yovanny 00 needed. GINKGO No Take 1 Memoria BILOBA ORAL 8-21 tablet by l 00:00: mouth [place] 00 daily. diphenhydra No Take 1 Vu jose mine HCl 8-21 tablet by l (SLEEP-AID 00:00: mouth at Her guerra ORAL) 00 bedtime as needed. modafinil Yes Take 100 Vu jose 100 mg 8-20 mg by l tablet 19:52: mouth as [place] 45 needed. GINKGO Yes Take 1 Memoria BILOBA ORAL 8-20 tablet by l 19:52: mouth Yovanny 45 daily. diphenhydra Yes Take 1 Vu jose mine HCl 8-20 tablet by l (SLEEP-AID 19:52: mouth at Her guerra ORAL) 45 bedtime as needed. vilazodone Yes Take 1 Memor ia (VIIBRYD) 8-20 tablet by l 10 mg Tab 14:34: mouth Yovanny 31 daily. vilazodone No Take 1 Memor ia (VIIBRYD) 8-20 tablet by l 10 mg Tab 00:00: mouth Yovanny 00 daily. levothyroxi Yes Take 1 Vu jose ne 8-19 tablet by l (SYNTHROID) 00:00: mouth Angeline nn 88 mcg 00 every tablet morning. VIIBRYD 40 Yes Take 40 mg M emoria mg tablet 8-11 by mouth l 00:00: daily. [place] 00 levothyroxi No Take 1 Vu jose ne 1-15 tablet by l (SYNTHROID) 00:00: mouth Angeline nn 88 mcg 00 every tablet morning. Vital Signs Vital Name Observation Time Observation Value Comments Source Systolic (mm Hg) 2019-07-23 13:36:00 Vu rial [place] Diastolic (mm Hg) 2019-07-23 13:36:00 Mem orial [place] Heart Rate 2019-07-23 13:36:00 [facility] [place] Respitory Rate 2019-07-23 13:36:00 Memori al [place] Temperature Oral (F) 2019-07-23 13:36:00 97.9 F [facility] [place] Height 2019-07-23 13:36:[address] [facility] [place] Weight 2019-07-23 13:36:00 [facility] [place] BMI Calculated 2019-07-23 13:36:00 Memori al [place] Systolic (mm Hg) 2019-06-13 20:45:00 Vu rial [place] Diastolic (mm Hg) 2019-06-13 20:45:00 Mem orial [place] Heart Rate 2019-06-13 20:45:00 [facility] [place] Respitory Rate 2019-06-13 20:45:00 Memori al [place] Height 2019-06-13 20:45:[address] [facility] Yovanny Weight 2019-06-13 20:45:00 [facility] [place] BMI Calculated 2019-06-13 20:45:00 Memori al [place] Systolic (mm Hg) 2019-04-12 19:52:00 Vu rial Yovanny Diastolic (mm Hg) 2019-04-12 19:52:00 Mem orial [place] Heart Rate 2019-04-12 19:07:00 [facility] [place] Temperature Oral (F) 2019-04-12 19:07:[address] [facility] [place] Height 2019-04-12 19:07:[address] [facility] Yovanny Weight 2019-04-12 19:07:00 [facility] [place] Systolic (mm Hg) 2018-11-07 20:03:00 Vu rial Yovanny Diastolic (mm Hg) 2018-11-07 20:03:00 Mem orial [place] Heart Rate 2018-11-07 20:03:00 [facility] [place] Temperature Oral (F) 2018-11-07 20:03:00 36.67 Navya [facility] [place] Respitory Rate 2018-11-07 20:03:00 Simran Guerrero Height 2018-11-06 14:00:00 160 cm [facility] [place] Weight 2018-11-06 14:00:00 [facility] [place] Procedures Procedure Date / Time Performed Performing Clinician Sour e HOLTER MONITOR RESULT 2019-04-04 12:01:00 Doctor Unassigned, No [facility] [place] Name COMP. METABOLIC PANEL 2018-11-06 20:16:00 Kee Rocha Mem orial [place] ([id number]) CBC WITH DIFF 2018-11-06 20:16:00 Kee Rocha ASSIGNMENT OF BENEFITS 2018-11-06 19:34:17 Doctor Unassigned, No [facility] [place] Name Plan of Care Planned Activity Planned Date Details Comments Source Future Scheduled Test 2020-01-12 Screening for Ceferino casiano [place] 00:00:00 malignant neoplasm of breast (procedure) [code = 578005687] Future Scheduled Test 2019-04-22 Plan of Care [code = [facility] 14:37:13 80672-3] Future Scheduled Test 2019-04-18 Plan of Care [code = [facility] 15:33:37 04186-3] Future Scheduled Test 2019-04-16 Plan of Care [code = [facility] 16:26:36 44489-6] Future Scheduled Test 2019-04-16 Plan of Care [code = [facility] [place] 15:17:43 28005-6] Future Scheduled Test 2019-04-12 Plan of Care [code = [facility] 19:16:05 13081-8] Future Scheduled Test 2019-04-11 Plan of Care [code = [facility] [place] 15:32:11 99543-4] Future Scheduled Test 2019-04-09 Plan of Care [code = [facility] [place] 15:24:51 98990-0] Future Scheduled Test 2019-04-04 Plan of Care [code = [facility] [place] 15:29:48 33477-3] Future Scheduled Test 2019-04-02 Plan of Care [code = [facility] [place] 22:09:33 22121-7] Future Scheduled Test 2018-11-18 Plan of Care [code = [facility] [place] 00:00:00 78027-4] Future Scheduled Test 2018-11-07 Plan of Care [code = [facility] [place] 20:21:00 09534-6] Future Scheduled Test 2018-11-06 Plan of Care [code = [facility] [place] 14:49:52 ] Future Scheduled Test 2018-11-06 Plan of Care [code = [facility] [place] 14:34:21 ] Future Scheduled Test 2018-11-06 Plan of Care [code = [facility] [place] 00:01:44 65229-0] Future Scheduled Test 2015-09-06 Plan of Care [code = [facility] [place] 00:00:00 ] Future Scheduled Test 2005-08-07 Plan of Care [code = [facility] [place] 00:00:00 ] Future Scheduled Test 2005-08-07 Screening for Memor ial Yovanny 00:00:00 malignant neoplasm of colon (procedure) [code = 253821863] Future Scheduled Test 1976-08-07 Plan of Care [code = [facility] [place] 00:00:00 ] Future Scheduled Test 1976-08-07 Screening for Memor ial Yovanny 00:00:00 malignant neoplasm of cervix (procedure) [code = 384527878] Future Scheduled Test 1974-08-07 Plan of Care [code = [facility] [place] 00:00:00 ] Future Scheduled Test 1966-08-07 Plan of Care [code = [facility] [place] 00:00:00 ] Future Scheduled Test 1955 Plan of Care [code = [facility] 00:00:00 ] Future Scheduled Test 1955 Hepatitis C Memori al Y[place]anny 00:00:00 screening (procedure) [code = 693288488] Encounters Start End Encounter Admission Attending Care Care Encounter Source Date/Time Date/Time Type Type Clinicians Facility Department ID 2019-09-11 2019-09-11 Telephone Starkey, [facility] [id number] 00:00:00 00:00:00 Liudmila Ortiz [id number] Scott 4.2.7.2.686 Raffi [id number] [facility] 2019-07-28 2019-07-28 Telephone Starkey, [facility] [id number] 00:00:00 00:00:00 Liudmila MURILLO 350.1.13.10 RACHNA 4.2.7.2.686 [place] [id number] [facility] 2019-07-24 2019-07-25 [facility] [id number] 15:04:25 07:58:12 ne Visit Liudmila Ortiz 350.1.13.10 [place] 4.2.7.2.686 Professio [phone] [facility] 2019-07-23 2019-07-23 Outpatient Belkis, MHMISCHER MHMISCHER [id number] 08:15:00 23:59:59 Isael 02 [facility] 2019-07-19 2019-07-19 Outpatient Belkis, MHMISCHER MHMISCHER [id number] 09:15:00 09:15:00 Isael 01 [facility] 2019-06-13 2019-06-13 Outpatient Belkis, MHMISCHER MHMISCHER [id number] 15:15:00 23:59:59 Isael 00 [facility] 2019-04-18 2019-04-18 [facility] [id number] 08:47:21 09:33:37 Visit Teto Ortiz 350.1.13.10 [place] 4.2.7.2.686 Professio [phone] [address] 2019-04-18 2019-04-18 [facility] [id number] 08:47:21 09:33:37 Visit Teto Ortiz 350.1.13.10 [place] 4.2.7.2.686 Professio [phone] [facility] 2019-04-16 2019-04-16 [facility] [id number] 08:37:43 09:17:43 Visit Teto Ortiz 350.1.13.10 [place] 4.2.7.2.686 Professio [phone] [address] 2019-04-16 2019-04-16 [facility] [id number] 08:37:43 09:17:43 Visit Teto Ortiz 350.1.13.10 [place] 4.2.7.2.686 Professio [phone] [facility] 2019-04-12 2019-04-12 Nurse Nurse, [facility] [place] [id number] 12:46:05 13:16:05 Visit Marino MULTISPEC 350.1.13.10 Diabetes IALTY 4.2.7.2.686 [place] [id number] [facility] 2019-04-12 2019-04-12 Nurse Nurse, [facility] 1.2.840.114 [id number] 12:46:05 13:16:05 Visit Marino MULTISPEC 350.1.13.10 Diabetes IALTY 4.2.7.2.686 [place] [id number] [facility] 2019-04-11 2019-04-11 Ancillary Kwan [facility] [id number] 08:47:11 09:32:11 Visit Bree Ortiz 350.1.13.10 [place] 4.2.7.2.686 Professio [phone] [facility] 2019-04-11 2019-04-11 Ancillary Kwan [facility] [id number] 08:47:11 09:32:11 Visit Bree Ortiz 350.1.13.10 [place] 4.2.7.2.686 Professio [phone] [facility] 2019-04-09 2019-04-09 Ancillary Kwan [facility] [id number] 08:39:51 09:24:51 Visit Bree Ortiz 350.1.13.10 [place] 4.2.7.2.686 Professio [phone] [facility] 2019-04-09 2019-04-09 Ancillary Kwan [facility] [id number] 08:39:51 09:24:51 Visit Bree Ortiz 350.1.13.10 [place] 4.2.7.2.686 Professio [phone] [facility] 2019-04-09 2019-04-09 Telephone Lalito [facility] [id number] 00:00:00 00:00:00 Anicetorenetta Diana 350.1.13.10 [place] 4.2.7.2.686 Professio [phone] [facility] 2019-04-09 2019-04-09 Telephone Lalito [facility] [id number] 00:00:00 00:00:00 Liudmila Ortiz 350.1.13.10 [place] 4.2.7.2.686 Professio [phone] [facility] 2019-04-04 2019-04-04 Ancillary Kwan [facility] [id number] 08:44:48 09:29:48 Visit Bree Ortiz 350.1.13.10 [place] 4.2.7.2.686 Professio [phone] [facility] 2019-04-04 2019-04-04 Ancillary Kwan [facility] [id number] 08:44:48 09:29:48 Visit Bree Sheikhton 350.1.13.10 [place] 4.2.7.2.686 Professio [phone] [facility] 2019-04-04 2019-04-04 Orders Doctor BULL [id number] [id number] 00:00:00 00:00:00 Only Unassigned, MATT 350.1.13.10 Virgin [facility] 4.2.7.2.686 [id number] 009 2019-04-04 2019-04-04 Orders Doctor BULL [id number] [id number] 00:00:00 00:00:00 Only Unassigned, MATT 350.1.13.10 Virgin [facility] 4.2.7.2.686 [id number] 009 2019-04-02 2019-04-02 Ancillary Juan David [facility] [id number] 15:04:57 16:09:33 Visit Diana Russell 350.1.13.10 Cyndi [place] 4.2.7.2.686 Professio [phone] [facility] 2019-04-02 2019-04-02 Ancillary Juan David [facility] [id number] 15:04:57 16:09:33 Visit Diana Russell 350.1.13.10 Cyndi [place] 4.2.7.2.686 [facility] [phone] [facility] 2018-11-07 2018-11-07 [facility] [id number] 11:03:00 15:21:00 Encounter Kee Ortiz 350.1.13.10 [place] 4.2.7.2.686 Surgical [phone] [place] [address] 2018-11-07 2018-11-07 [facility] [id number] 11:03:00 15:21:00 Encounter Kee Ortiz 350.1.13.10 [place] 4.2.7.2.686 Surgical [id number] [place] [address] 2018-11-06 2018-11-06 Controls Designer 1, Adc Lab [facility] 1.2.840.114 [id number] 09:34:52 09:49:52 Visit Diana 350.1.13.10 [place] 4.2.7.2.686 [place] [phone] [facility] 2018-11-06 2018-11-06 Controls Designer 1, Adc Lab [facility] 1.2.840.114 [id number] 09:34:52 09:49:52 Visit Diana 350.1.13.10 [place] 4.2.7.2.686 [place] [phone] [id number] 2018-11-06 2018-11-06 Orders Doctor BULL 1.2.840.114 [id number] 00:00:00 00:00:00 Only Unassigned, MATT 350.1.13.10 Virgin [facility] 4.2.7.2.686 [id number] 009 2018-11-06 2018-11-06 Orders Doctor BULL 1.2.840.114 [id number] 00:00:00 00:00:00 Only Unassigned, MATT 350.1.13.10 Virgin [facility] 4.2.7.2.686 [id number] 009 2018-10-30 2018-10-30 [facility] [id number] 00:00:00 00:00:00 Serenity MESSER 350.1.13.10 MEDICINE 4.2.7.2.686 [facility] [id number] [address] 2018-10-30 2018-10-30 Deshaun Kan [facility] [id number] 00:00:00 00:00:00 Serenity MESSER 350.1.13.10 MEDICINE 4.2.7.2.686 [facility] [phone] [address] Results Test Description Test Time Test Comments Results Result Comments Source COMP. METABOLIC 2018-11-06 142 Memorial PANEL ([id number]) 16:33:00 Yovanny COMP. METABOLIC 2018-11-06 4.6 Memorial PANEL (90388) 16:33:00 Yovanny COMP. METABOLIC 2018-11-06 101 [facility] PANEL (03958) 16:33:00 Yovanny COMP. METABOLIC 2018-11-06 29 Memorial PANEL (12491) 16:33:00 Yovanny COMP. METABOLIC 2018-11-06 12 Memorial PANEL (45071) 16:33:00 [place] COMP. METABOLIC 2018-11-06 16 Memorial PANEL (19496) 16:33:00 Yovanny COMP. METABOLIC 2018-11-06 105 [facility] PANEL (27893) 16:33:00 [place] COMP. METABOLIC 2018-11-06 0.89 Memorial PANEL (95258) 16:33:00 Yovanny COMP. METABOLIC 2018-11-06 0.5 Memorial PANEL (98885) 16:33:00 [place] COMP. METABOLIC 2018-11-06 10.2 Memorial PANEL (57808) 16:33:00 Yovanny COMP. METABOLIC 2018-11-06 7.9 Memorial PANEL (94864) 16:33:00 [place] COMP. METABOLIC 2018-11-06 5.0 [facility] PANEL (28433) 16:33:00 [place] COMP. METABOLIC 2018-11-06 48 [facility] PANEL (71485) 16:33:00 [place] COMP. METABOLIC 2018-11-06 38 [facility] PANEL (63772) 16:33:00 [place] COMP. METABOLIC 2018-11-06 27 [facility] PANEL (76889) 16:33:00 [place] COMP. METABOLIC 2018-11-06 64.1 [facility] PANEL (39145) 16:33:00 [place] COMP. METABOLIC 2018-11-06 77.6 Memorial PANEL (71251) 16:33:00 Yovanny CBC WITH 2018-11-06 7.88 Memorial DIFFERENTIAL 15:27:00 [place] CBC WITH 2018-11-06 4.32 Memorial DIFFERENTIAL 15:27:00 Yovanny CBC WITH 2018-11-06 12.9 Memorial DIFFERENTIAL 15:27:00 Yovanny CBC WITH 2018-11-06 38.1 Memorial DIFFERENTIAL 15:27:00 Y[place]anny CBC WITH 2018-11-06 88.2 [facility] DIFFERENTIAL 15:27:00 [place] CBC WITH DIFFERENTIAL 2018-11-06 15:27:00 Test Item Value Reference Range Interpretation Comme nts <td 29.9 25.9-32.8 ID="[id number]">[facility]CH</td><td>29.9</td><td>25.9 - pg 32.8 pg</td><td>[facility]</td><td ID="[id number]"/> (test code = <td ID="[id number]">MCH</td><td>29.9</td><td>25.9 - 32.8 pg</td><td>[facility]</td><td ID="[id number]"/>) [facility] [id number] 15:27:0033.9[facility] [id number] 15:27:0041.9[facility] DIFFERENTIAL 2018-11-06 15:27:0012.9[facility] WITH [id number] 15:27:00 219[facility] WITH [id number] 15:27:009.2[facility] CBC WITH [id number] 15:27:000.0[facility] DIFFERENTIAL 2018-11-06 15:27:0064.2[facility] WITH [id number] 15:27:00 0.40[facility] WITH [id number] 15:27:0025.1[facility] [place] CBC WITH [id number] 15:27:007.6[facility] DIFFERENTIAL 2018-11-06 15:27:002.2[facility] WITH [id number] 15:27:00 0.5[facility] WITH [id number] 15:27:005.06[facility] CBC WITH [id number] 15:27:000.03[facility] WITH [id number] 15:27:001.98[facility] DIFFERENTIAL 2018-11-06 15:27:000.60[facility] WITH [id number] 15:27:00 0.17[facility] WITH [id number] 15:27:000.04[facility]
--- OUTSIDE RECORDS SUMMARY | 2019-09-12 10:03 | XMS REPORT | Summary of Care ---
:1955 Author Organization [facility] Address [address] [place] [id number] Care Team Providers Name Role Phone Jessi Calderón Primary Care Provider Reason for Visit Reason Comments Rx Concern/Question Prolia Encounter Details Date Type Department Care Team Description 09/11/2019 Telephone [facility] Liudmila Starkey MD Rx Concern/Question Endocrinology- [address] [facility] (Prol[facility]) [address], [address] [address] [place], [place] [phone] [id number] [phone] Allergies No Known Allergiesdocumented as of this encounter (statuses as of 09/11/2019) Medications Medication Sig Dispensed Refills Start Date End Date Status pravastatin (PRAVACHOL) Take 40 mg by 0 Active 40 mg tablet mouth at bedtime. cholecalciferol, vitamin Take 1 tablet by 0 Active D3, 50,000 unit tablet mouth every 14 (fourteen) days. ezetimibe 10 mg tablet Take 10 mg by 0 Active mouth daily. VIIBRYD 40 mg tablet Take 40 mg by 0 10/28/2018 Active mouth daily. levothyroxine Take 1 tablet by 90 tablet 2 01/23/2019 Active (SYNTHROID) 88 mcg mouth every tabletIndications: morning. Primary hypothyroidism documented as of this encounter (statuses as of 09/11/2019) Active Problems Problem Noted Date Primary hypothyroidism 04/05/2016 Multiple thyroid nodules 04/05/2016 Personal history of other diseases of digestive system 04/06/2010 Osteoporosis, senile 12/16/2008 GERD (gastroesophageal reflux disease) 12/16/2008 Cataract documented as of this encounter (statuses as of 09/11/2019) Resolved Problems Problem Noted Date Resolved Date Osteoporosis 12/16/2008 12/16/2008 Overview: ICD10 Diagnosis Term Industrial Sales Manager Utility documented as of this encounter (statuses as of 09/11/2019) Social History Tobacco Use Types Packs/Day Years Used Date Never Smoker Smokeless Tobacco: Never Used Alcohol Use Drinks/Week oz/Week Comments Yes 2 -4 drinks a we ek Sex Assigned at Date Recorded Not on file Job Start Date Occupation Industry Not on file Not on file Not on file Travel History Travel Start Travel End No recent travel history available. documented as of this encounter Last Filed Vital Signs Not on filedocumented in this encounter Plan of Treatment Date Type Specialty Care Team Description 10/22/2019 Appointment Radiology Liudmila Starkey MD [address] [place] [address] Health Maintenance Due Date Last Done Comments HEPATITIS C (HCV) SCREEN 1955 DTaP,Tdap,and Td Vaccines (1 08/07/1966 - Tdap) PAP SMEAR 08/07/1976 COLONOSCOPY 08/07/2005 Zoster Recombinant Vaccine 08/07/2005 (SHINGRIX) (1 of 2) Depression Screening 11/08/2019 11/07/2018 INFLUENZA VACCINE (Season 11/19/2019 Ended) Breast Cancer Screening 01/12/2020 01/11/2019, (MAMMOGRAM) 09/05/2014 PNEUMOCOCCAL 0-64 YEARS Aged Out No longe r eligible based COMBINED SERIES on patient's age to complete this to pic documented as of this encounter Goals Goal Patient Goal Associated Recent Patient-Stated? Author Type Problems Progress Patient wants General Yes Juan David her pain to Drew, decrease and Cyndi, PT wants to be able to return to activities she stopped. documented as of this encounter Implants Implanted Type Area Psychologist Personnel Device Shelf Model / Serial Identifier Expiration / Lot Date Lens, Abdulaziz #[id number] - [id number] LENS Right: Abdulaziz 03/19/2023 [id number] / Implanted: Qty: 1 on 2018 by Kee Rausch MD at [facility] 1 [id number] / N/A Lens, Abdulaziz #[id number] - [id number] LENS Left: Eye Abdulaziz 12/17/2022 [id number] / Implanted: Qty: 1 on 11/07/2018 by Kee Rausch MD at [facility] 2 [id number] / N/A documented as of this encounter Results Not on filedocumented in this encounter Insurance Payer Benefit Plan / Group Subscriber ID Effective Dates Phone Address Type AETNA AETNA O [id number] 2010-Present [place] documented as of this encounter
[2019-09-12] MEDS ORDERED: KETOROLAC 30 MG/ML INJ ONE (13:08)
[2019-09-12] MEDS: HYDROMORPHONE HCL 1 MG/ML INJ ONE ×2 (13:37→13:45)
[2019-09-12] MEDS ORDERED: HYDROCODONE/APAP 5/325 MG TAB ONE (14:37)
[2019-09-12 15:49] VITALS: TEMP 97.6
[2019-09-12 15:52] VITALS: BP 128/65; O2SAT 98
--- NOTE | 2019-09-13 01:20 | OP ---
Date of Procedure: 09/12/2019 Surgeon: Angie Leo MD Preoperative Diagnoses: Stage III incomplete uterovaginal prolapse, cystorectocele, occult stress ur inary incontinence and history of longstanding human papillomavirus. Procedures Performed: Total laparoscopic hysterectomy, bilateral salpingo-oophorectomy, uterosacral suspension, cystoscopy. Anesthesia: General endotracheal. Specimens: Uterus, bilateral tubes and ovaries. Complications: No complications. Drains: No drains. Condition: Stable. Her procedure went unremarkably during the hysterectomy, salpingo-oophorectomy. There was accidental contamination of stool into the vagina and the top of the vaginal cuff, which made this a risky proc edure for placement of a synthetic graft as the graft augmented repair was the procedure that she was consented for and she is a great candidate for and that is what is indicated for her stage of prolap se. This was considered to be an unreasonable risk for graft infection due to the accidental contami nation during the surgery. So, her sacral colpopexy was postponed, I took the remnants of the distal uterosacral ligaments and this was suspended to the area immediately medial to the angles of the vag inal cuff closure and full thickness with 0 PDS sutures, 1 on each side for temperature relief. Plan was to perform a staged procedure, which she would come back after healing from her hysterectomy for laparoscopic sacral colpopexy. Description Of Procedure: After informed consent was verified, the patient was brought to the OR jus t in supine fashion on the operating table. General anesthesia was given, she was placed in dorsal l ithotomy position using Sergio stirrups. Abdomen, vulva, vagina, and perineum were prepped and draped in a sterile fashion. A pelvic exam was performed. Her POP-Q was as follows: 0, +2, -1, 5, modera te, and 7. Posterior wall -2, -2, -3. The defect was mostly apical and anterior, posteriorly not much defect seen, however the area between the vagina and the perineal body was thin. The area of the perineum and anus after the draping the legs with the leggings, towels placed lateral to the operative margin on the thighs. This was all st apled and then another towel was placed to make sure that the perineum and perianal areas were walled off with a towel. Nisswa were placed in this area. Speculum was placed to expose the cervix. A medium VCare was introduced into the uterus. A Atkinson wa s placed to drain the bladder and attached for retrograde filling. All these once they were fixed in place this area was draped. 1 cm infraumbilical incision made with the scalpel using open laparoscopy technique. Fascia was inci sed, tagged with 0 Vicryl sutures. Peritoneum entered sharply. S-retractors were placed, Jaja int roduced. Site of entry was checked, unremarkable after adequate insufflation. Suprapubic 10 mm and two 8 mm probes were placed on the left and right lower quadrants under direct vision after injecting the skin and fascia with 0.25% Marcaine. Thorough inspection was performed. The bowel was retracte d with epiploicae sutured with 3-0 Monocryl suture and pulled out with Donal-Kulwant needle through the left upper quadrant incision. The ureters were traced in their courses and were undistorted. No other pathology was noted. The ut erosacrals appeared to be somewhat elongated and non-prominent. The left tube had a distal cyst. The tube was taken down with the help of the LigaSure and left john ched to the uterus, then the utero-ovarian ligament. The rest of the round ligament and broad ligame nt were all taken down with the help of the LigaSure. The broad ligament was opened up anteriorly to create a bladder flap on the opposite side and posteriorly this dissection was taken to the uterosac ral vessels, were taken down with the help of the LigaSure. On the opposite side, similar dissection was performed taking first the infundibulopelvic ligament the ovary and removing the ovar y by taking down the utero-ovarian ligament, then the mesosalpinx and tube were taken down and tube w as pulled out through the suprapubic incision. Then, the round ligament was taken down, broad ligame nt was taken down to the level of the vessels and anteriorly connected with the bladder flap and post eriorly taken down after the vessels were taken down to the level of the vaginal cuff. Circumferenti al colpotomy was performed with a monopolar hook blade after this and carefully taken down. The spec imen was pulled out through the vagina. The specimen was placed in the vagina as the VCare was being pulled out. Then, the ovary on the right side was also from its attachment and then the l eft ovary was from its attachment and these were retrieved through the vagina using the spo nge forceps going through the vaginal canal. the uterus was being removed, inadvertently noticed that there was stool on top of the sponge forceps, and on tracing back its origin, this could have been accidentally placed in the rectum. Not recognizing, this was placed back into the vagina by the assistant commissioner, and so there was vaginal contamination with stool. Immediately vaginal occlusion w ith sponge in a bulb was done after cleaning out the vagina with the sponge. Then, the vaginal cuff was irrigated placing the patient in a reverse Trendelenburg so that the fluid does not get into the upper abdomen. Then, vaginal cuff was closed with the help of a 2-0 V-Loc. Epithelial closure follo wed by the connective tissue closure in a second layer pulling together and reinforcing this closure all the way from the right and to the left and then left to the right and 1 back stitch was taken to prevent unwinding of the V-Loc. After this, the entire closure was done and the patient was placed in Trendelenburg. Thorough irriga tion and suction were performed and after there was clear fluid at least 2 L was irrigated and then s uctioned out clear fluid. No fecal contamination grossly was noted into the peritoneal cavity. Davidson teresita, this was an inappropriate situation to proceed with the sacral colpopexy and add additional risk factors for graft infection, therefore took the distal uterosacral ligament on both sides after trac ing it. 0 PDS suture was placed to the left side, then through the connective tissue of the cuff on the back and the front and then tied together. Similarly, distal uterosacral on the right side, whic h was much more robust and easier to find was placed through the vaginal cuff on the right side, full thickness. There was a decent suspension of the apex, which appeared to be at least -5. Anteriorly , there was not much of . There was no anterior compartment defect repair performed. I pl anned for a staged procedure, and after patient healed up from this, she could come back f or the sacral colpopexy. So after thorough irrigation and suction was performed, again pedicles were checked for hemostasis. The ureter was checked for no electrical, mechanical, or thermal injury. T hen, the gas was desufflated. The trocars were pulled out under direct vision. Again, injection wit h Marcaine was done, gas desufflated in a closed fashion. Jaja removed. Fascia closed with the he lp of the 0 Vicryl tag sutures, tied to each other, suprapubic closed with simple 0 Vicryl stitch and all incisions on the skin closed with interrupted 4-0 Vicryl sutures. Then Atkinson was removed, cysto scopy was performed. Excellent jets of urine from both ureteric orifices. No evidence of any trauma to the bladder. The vagina was now thoroughly irrigated and suctioned with at least 2 L of fluid to prevent a vaginal cuff infection. Patient was given an antibiotic for 7 days postop for routine use due to this contamination. Atkinson was left out. Instrument, needle, and sponge counts were correct at the end of the case. The patient tolerated procedure well, she was recovered from anesthesia and taken to the PACU in stable c ondition. She will follow up with me in 1 week. All these findings and the interrupted procedure we re all explained to the , . Rayray Fernando, who was very understanding of the procedure and a cknowledged understanding. GENEVIEVE/PASTOR Voice ID: [id number] Report ID: [id number]
== END 2019-09-12 15:25 | disposition home or self-care (01) ==
LOC: OR 08:24
PROVIDERS: ATTEND Obstetrics & Gynecology
PROC: 0UT24ZZ Resection of Bilateral Ovaries, Percutaneous Endoscopic Approach (ICD-10-PCS; 2019-09-12)
PROC: 0UT74ZZ Resection of Bilateral Fallopian Tubes, Percutaneous Endoscopic Approach (ICD-10-PCS; 2019-09-12)
PROC: 0TSD4ZZ Reposition Urethra, Percutaneous Endoscopic Approach (ICD-10-PCS; 2019-09-12)
PROC: 0UT94ZZ Resection of Uterus, Percutaneous Endoscopic Approach (ICD-10-PCS; principal; 2019-09-12 09:30)
DX: D25.2 Subserosal leiomyoma of uterus (principal); N88.8 Other specified noninflammatory disorders of cervix uteri; N83.8 Other noninflammatory disorders of ovary, fallopian tube and broad ligament; D27.1 Benign neoplasm of left ovary; D27.0 Benign neoplasm of right ovary; N94.89 Other specified conditions associated with female genital organs and menstrual cycle; N81.3 Complete uterovaginal prolapse; N39.3 Stress incontinence (female) (male); N32.81 Overactive bladder; E03.9 Hypothyroidism, unspecified; M81.0 Age-related osteoporosis without current pathological fracture; M85.80 Other specified disorders of bone density and structure, unspecified site; Z79.899 Other long term (current) drug therapy
CPT/HCPCS: 85025; 80048; 36415; 86900; 86850; 85610; 86901; 88307; 85730; 58571; 51990; U0002; J2704; J2250; J3010; J1100; J1170; J0690; J7120 ×2; J2405; 81003; 81015